=== PATIENT | female | born 1955 | race Caucasian/White ===

== ENCOUNTER 2017-06-21 13:53 | Outpatient (CLI) | payer OTHER ==
[2014-11-07 18:39] VITALS: BP 121/62
[2017-06-21 14:12] LABS: BASOPHILS % 0.5 (0.0-1.5); MEAN CORPUSCULAR HEMOGLOBIN 32.3 pg (28.0-34.0); MEAN CORPUSCULAR VOLUME 93.7 fl (80.0-100.0); MONOCYTES % 4.5 % (0.0-11.0); NEUTROPHILS # 3.2 # k/uL (1.4-7.7)
[2017-06-21 15:24] LABS: eGFR (African) > 60; eGFR (Non-African) > 60
== END 2017-06-21 13:54 ==
LOC: LAB 13:53
PROVIDERS: ATTEND Family Medicine
DX: Z00.00 Encounter for general adult medical examination without abnormal findings (principal); Z13.29 Encounter for screening for other suspected endocrine disorder
CPT/HCPCS: 36415; 80053; 80061; 84443; 85025

== ENCOUNTER 2017-08-29 14:30 | Outpatient (CLI) | payer OTHER ==
[2014-11-07 18:39] VITALS: BP 121/62
== END 2017-08-29 14:32 ==
LOC: LAB 14:30
PROVIDERS: ATTEND Family Medicine
DX: E03.9 Hypothyroidism, unspecified (principal)
CPT/HCPCS: 36415; 84443